=== PATIENT | female | born 1985 | race American Indian/Alaskan Native ===

== ENCOUNTER 2018-02-14 15:29 | Outpatient (CLI) | payer OTHER ==
[2018-02-14] MEDS ORDERED: LACTATED RINGERS 500 ML IV ONE (15:59)
[2018-02-14 16:55] VITALS: BP 108/64
== END 2018-02-14 17:00 | disposition home or self-care (01) ==
LOC: TRG 15:29
PROVIDERS: ATTEND Obstetrics & Gynecology
DX: O47.02 False labor before 37 completed weeks of gestation, second trimester (principal); Z3A.21 21 weeks gestation of pregnancy
CPT/HCPCS: 59025

== ENCOUNTER 2018-06-11 11:10 | Outpatient (CLI) | payer BC, OTHER ==
[2018-06-11 11:39] VITALS: BP 122/66
--- NOTE | 2018-06-11 17:51 | Ultrasound Report ---
FINAL REPORT EXAM: US OB BPP WO NON-STRESS HISTORY: well being TECHNIQUE: Ultrasound examination of the gravid uterus for biophysical profile evaluation of the fet us PRIORS: Limited OB ultrasound the same day FINDINGS: There is a single viable intrauterine with documented cardiac activity. The amniotic fluid volume is normal. heart rate: 146 bpm Amniotic fluid maximum vertical pocket: 6.1 cm Placental position: Anterior Evaluation for biophysical profile yields the following score as reported by technologist from [facility] exam: respiratory motion (minimum one episode): 2 Gross body movement (minimum 3 movements): 2 tone (minimum one flexion and extension): 2 Amniotic fluid volume (at least 2 cm pocket in vertical diameter): 2 IMPRESSION: Single viable intrauterine with 8/8 biophysical profile score during the sonographic evalua tion
--- NOTE | 2018-06-11 17:54 | Ultrasound Report ---
FINAL REPORT EXAM: US OB LIMITED HISTORY: well being TECHNIQUE: Limited ultrasound evaluation of the gravid uterus PRIORS: Biophysical profile the same day FINDINGS: There is a single viable intrauterine with documented cardiac activity. No anatomic a ssessment. Heart rate: 146 beats per minute position: Cephalic Placental position: Anterior Amniotic fluid index: 13.0cm IMPRESSION: Single viable intrauterine with the above parameters
== END 2018-06-11 13:30 | disposition home or self-care (01) ==
LOC: TRG 11:10
PROVIDERS: ATTEND Obstetrics & Gynecology
DX: O47.1 False labor at or after 37 completed weeks of gestation (principal); Z3A.38 38 weeks gestation of pregnancy
CPT/HCPCS: 59025; 76815; 76819

== ENCOUNTER 2018-06-18 19:05 | Outpatient (CLI) | payer OTHER ==
--- NOTE | 2018-06-18 19:56 | Event Note ---
Date: 06/18/18 complains of ROM ~1hour ago, no contractions, +FM. FHT's cat 1. SSE negative pool, equivocal nitrazine. Will proceed with US for MAYELIN and presentation
[2018-06-18 20:10] VITALS: BP 128/79
--- NOTE | 2018-06-19 01:27 | Ultrasound Report ---
FINAL REPORT EXAM: US OB LIMITED HISTORY: Evaluate for amniotic fluid and presentation. TECHNIQUE: Transabdominal limited sonographic evaluation was performed of the female pelvis with and without color Doppler imaging. PRIORS: Prior ultrasound dated 06/11/2017. FINDINGS: Single, intrauterine in cephalic presentation. Measurements: heart rate: 133 beats per minute. Amniotic fluid index: 11.0 cm. Estimated LMP-09/23/2017, EDC 06/30/2018. IMPRESSION: Amniotic fluid volume within normal limits. Viable intrauterine in cephalic presentation.
== END 2018-06-18 21:00 | disposition home or self-care (01) ==
LOC: TRG 19:05
PROVIDERS: ATTEND Obstetrics & Gynecology
DX: O47.1 False labor at or after 37 completed weeks of gestation (principal); Z3A.39 39 weeks gestation of pregnancy
CPT/HCPCS: 76815

== ENCOUNTER 2018-06-20 05:45 | Inpatient (IN) | payer BC, OTHER ==
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
[2018-06-20 09:54] LABS: Hematocrit 34.7 % (30.3-42.9); Hemoglobin 11.8 gm/dl (10.1-14.3); Mean Corpuscular HGB Conc 34 % (30-34); Mean Corpuscular Volume 92 fl (79-97); Platelet Count 255 K/mm3 (140-440); Red Cell Distribution Width 15.1 % (13.2-15.2)
[2018-06-20] MEDS: LACTATED RINGERS 1,000 ML IV SCH ×2 (10:00→17:52)
[2018-06-20] MEDS ORDERED: SUBLIMAZE IV PRN (10:30)
[2018-06-20] MEDS ORDERED: ZOFRAN IV PRN ×2 (10:30→22:37)
[2018-06-20] MEDS ORDERED: STADOL IV PRN (10:30)
[2018-06-20] MEDS ORDERED: AMPICILLIN/NS 2 GM/100 ML 2 GM/100 ML BAG IV ONE (10:30)
[2018-06-20] MEDS ORDERED: XYLOCAINE 2% INFILTRATI NR (10:30)
[2018-06-20] MEDS ORDERED: BRETHINE SUB-Q PRN (11:00)
[2018-06-20] MEDS ORDERED: MINERAL OIL PO PRN (11:00)
[2018-06-20] MEDS ORDERED: PITOCin/NS 30 UNIT/500ML 30 UNITS/500 ML BAG IV SCH (11:00)
[2018-06-20] MEDS ORDERED: BRETHINE IVP PRN (11:00)
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
[2018-06-20] MEDS ORDERED: NARCAN 2 MG/2 ML IV PRN (15:24)
--- NOTE | 2018-06-20 15:24 | Anesthesia Day of Surgery ---
Anesthesia Day of Surgery - Day of Surgery Patient Examined: Yes Patient H&P Reviewed: Yes Patient is NPO: Yes Beta Blockers: No Cardiac Clearance: No Pulmonary Clearance: No Asa's Test: N/A
--- NOTE | 2018-06-20 15:27 | Anesthesia Consultation ---
Anesthesia Consult and Med Hx - Airway Anesthetic Teeth Evaluation: Good ROM Head & Neck: Adequate Mental/Hyoid Distance: Adequate Mallampati Class: Class II Intubation Access Assessment: Probably Good - Pulmonary Exam CTA: Yes - Cardiac Exam Cardiac Exam: RRR - Pre-Operative Health Status ASA Pre-Surgery Classification: ASA2 Proposed Anesthetic Plan: Epidural - Pulmonary Hx Smoking: No Hx Asthma: No Hx Respiratory Symptoms: No SOB: No COPD: No Home Oxygen Therapy: No Hx Pneumonia: No Hx Sleep Apnea: No - Cardiovascular System Hx Hypertension: No Hx Coronary Artery Disease: No Hx Heart Attack/AMI: No Hx Angina: No Hx Percutaneous Transluminal Coronary Angioplasty (PTCA): No Hx Cardia Arrhythmia: No Hx Pacemaker: No Hx Internal Defibrillator: No Hx Valvular Heart Disease: No Hx Heart Murmur: No Hx Peripheral Vascular Disease: No - Central Nervous System Hx Neuromuscular Disorder: No Hx Seizures: No CVA: No Hx Back Pain: No Hx Psychiatric Problems: No - Gastrointestinal Hx Ulcer: No Hx Gastroesophageal Reflux Disease: No - Endocrine Hx Renal Disease: No Hx End Stage Renal Disease: No Hx Cirrhosis: No Hx Liver Disease: No Hx Insulin Dependent Diabetes: No Hx Non-Insulin Dependent Diabetes: No Hx Hypothyroidism: No Hx Hyperthyroidism: No - Hematic Hx Anemia: No Hx Sickle Cell Disease: No - Other Systems Hx Alcohol Use: No Hx Substance Use: No Hx Cancer: No Hx Obesity: No
[2018-06-20] MEDS: AMPICILLIN/NS 1 GM/50 ML 1 GM/50 ML BAG IV SCH ×2 (15:33→19:31)
[2018-06-20] MEDS ORDERED: MARCAINE 0.25% INFILTRATI ONE ×2 (15:59→16:06)
[2018-06-20] MEDS ORDERED: fentaNYL-BUPIV 2 MCG/ML-0.125% 200 MCG/100 ML BAG EPIDURAL SCH (16:00)
[2018-06-20] MEDS ORDERED: DIPRIVAN 10 MG/ML IV ONE (18:46)
[2018-06-20] MEDS: PITOCin/NS 20 UNIT/1000ML DRIP 20 UNITS/1,000 ML BAG IV SCH ×2 (20:45→21:55)
--- NOTE | 2018-06-20 21:29 | Post Anesthesia Evaluation ---
- Post Anesthesia Evaluation Patient Participated: Yes Airway Patent: Yes Stable Respiratory Function: Yes Nausea/Vomiting: No Temp > 96.8F: Yes Pain Manageable: Yes Adequeate Hydration: Yes Anesthesia Complications: No Block Receding Appropriately: Yes Patient on Ventilator: No
--- NOTE | 2018-06-20 21:47 | Procedure Note ---
OB Delivery Note - Delivery Date of Delivery: 06/20/18 Surgeon: ROBYN SOTELO Estimated blood loss: 300cc - Vaginal Delivery presentation: vertex Delivery position: OA Intrapartum events: mult.variable deceleratio Delivery induction: none Delivery augmentation: pitocin Delivery monitor: external FHT, external uterine, internal FHT, internal uterine Route of delivery: Delivery placenta: spontaneous (intact) Delivery cord: nuchal cord (x1 loose, delivery over body) Episiotomy: none Delivery laceration: 1st degree (left labial made hemostatic with Lidocaine 2% w/o epi and 2-0 Vicryl figure of 8 stitch x1) Anesthesia: local, epidural - Infant A at 1 minute: 8 at 5 minutes: 9 Infant Gender: Male (7#4oz)
[2018-06-20] MEDS ORDERED: MILK OF MAGNESIA PO PRN (22:37)
[2018-06-20] MEDS ORDERED: TYLENOL PO PRN (22:37)
[2018-06-20] MEDS ORDERED: DULCOLAX PR PRN (22:37)
[2018-06-20] MEDS ORDERED: TUCKS PAD TP PRN (22:37)
[2018-06-20] MEDS ORDERED: SODIUM CHLORIDE FLUSH SYRINGE 10 ML IV NR (22:37)
[2018-06-20] MEDS ORDERED: PHENERGAN PR PRN (22:37)
[2018-06-20] MEDS ORDERED: BENADRYL PO PRN (22:37)
[2018-06-20] MEDS ORDERED: PHENERGAN PO PRN (22:37)
[2018-06-20] MEDS ORDERED: LANSINOH TP PRN (22:37)
[2018-06-20] MEDS: IBUPROFEN PO SCH ×2 (23:09→23:11)
[2018-06-21] MEDS ORDERED: BOOSTRIX IM ONE (06:00)
[2018-06-21] MEDS: IBUPROFEN PO SCH ×3 (06:14→17:09)
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
[2018-06-21 10:45] LABS: Hematocrit 26.1 % (30.3-42.9); Hemoglobin 8.9 gm/dl (10.1-14.3)
[2018-06-21] MEDS ORDERED: AFLURIA QUAD 2018-2019 SYRINGE IM ONE (12:00)
[2018-06-22] MEDS: IBUPROFEN PO SCH ×3 (00:16→15:50)
--- NOTE | 2018-06-22 10:29 | Discharge Summary ---
Providers - Providers Date of Admission: 06/20/18 05:55 Date of discharge: 06/22/18 (desires d/c home) Attending physician: IBETH HUGGINS 06/20/18 22:37 Consult to Hospital Wellness Coordinator [CONS] Routine Reason For Exam: assistance with , SNS Primary care physician: IBETH HUGGINS Hospitalization Reason for admission: Labor/SROM Condition: Good Pertinent studies: post delivery H&H 8.9/26.1, asymptomatic anemia from blood loss, acute Procedures: Hospital course: uncomplicated and course Disposition: DC-01 TO HOME OR SELFCARE - Discharge Diagnoses (1) Rh negative, maternal Status: Acute Qualifiers: Trimester: third trimester Qualified Code(s): O26.893 - Other specified related conditions, third trimester; Z67.91 - Unspecified blood type, Rh negative (2) BMI 45.0-49.9, adult Status: Acute (3) (normal spontaneous vaginal delivery) Status: Acute Core Measure Documentation - Palliative Care Palliative Care/ Comfort Measures: Not Applicable - Core Measures Any of the following diagnoses?: none Exam - Constitutional Vitals: Temp Pulse Resp BP Pulse Ox 98.3 F 83 18 95/58 98 06/22/18 07:25 06/22/18 07:25 06/22/18 07:25 06/22/18 07:25 06/22/18 07:25 General appearance: Present: no acute distress, well-nourished - EENT Eyes: Present: PERRL ENT: hearing intact, clear oral mucosa - Neck Neck: Present: supple, normal ROM - Respiratory Respiratory effort: normal Respiratory: bilateral: CTA - Cardiovascular Heart Sounds: Present: S1 & S2. Absent: rub, click - Extremities Extremities: pulses symmetrical, No edema Peripheral Pulses: within normal limits - Abdominal General gastrointestinal: Present: soft, non-tender, non-distended, normal bowel sounds Female genitourinary: Present: normal - Integumentary Integumentary: Present: clear, warm, dry - Musculoskeletal Musculoskeletal: gait normal, strength equal bilaterally - Psychiatric Psychiatric: appropriate mood/affect, intact judgment & insight - Neurologic Neurologic: CNII-XII intact, moves all extremities - Additional findings Additional findings: fundus firm, lochia scant Plan Activity: no restrictions Diet: regular Follow up with: IBETH HUGGINS MD [Primary Care Provider] - 7 Days (Congratulations! Please call [phone] to schedule your son's circumcision in 1 week and your visit in 6 weeks. bring EMLA cream to your son's appointment and await further teaching. Call for any questions or concerns. ) Forms: [facility] Discharge Summary Prescriptions: Ibuprofen [Motrin 800 MG tab] 800 mg PO Q8HR PRN #30 tablet PRN Reason: Pain Lidocain2.5%/Prilocai2.5% [Emla] 5 gm TP ONCE #1 tube Lidocain2.5%/Prilocai2.5% [Emla] 5 gm TP ONCE PRN #1 tube PRN Reason: Pain
[2018-06-22 17:40] VITALS: BP 110/60
[2018-06-22] MEDS ORDERED: DERMOPLAST TP PRN (17:58)
== END 2018-06-22 18:52 | disposition home or self-care (01) | DRG 775 ==
LOC: TRG 05:45 → LD 05:55 → TRG 09:09 → OB 22:44
PROVIDERS: ADMIT Obstetrics & Gynecology; ATTEND Obstetrics & Gynecology
PROC: 10E0XZZ Delivery of Products of Conception, External Approach (ICD-10-PCS; principal; 2018-06-20)
PROC: 0HQ9XZZ Repair Perineum Skin, External Approach (ICD-10-PCS; 2018-06-20)
PROC: 3E0234Z Introduction of Serum, Toxoid and Vaccine into Muscle, Percutaneous Approach (ICD-10-PCS; 2018-06-20)
PROC: 10H07YZ Insertion of Other Device into Products of Conception, Via Natural or Artificial Opening (ICD-10-PCS; 2018-06-20)
PROC: 30233S1 Transfusion of Nonautologous Globulin into Peripheral Vein, Percutaneous Approach (ICD-10-PCS; 2018-06-21)
DX: O76 Abnormality in fetal heart rate and rhythm complicating labor and delivery (principal); O69.81X0 Labor and delivery complicated by cord around neck, without compression, not applicable or unspecified; Z3A.38 38 weeks gestation of pregnancy; Z37.0 Single live birth; O26.893 Other specified pregnancy related conditions, third trimester; Z67.91 Unspecified blood type, Rh negative; Z23 Encounter for immunization; O99.824 Streptococcus B carrier state complicating childbirth; O70.0 First degree perineal laceration during delivery
CPT/HCPCS: 36415; 76815; 85014; 85018; 85027; 85461; 86592; 86762; 86850; 86900; 86901; 90686; G0378; J0290; J0595; J2590; J2704; J2790; J3010; J7120

== ENCOUNTER 2018-12-24 08:25 | Emergency (ER) | payer OTHER ==
[2018-12-24 08:36] VITALS: BP 118/85
[2018-12-24 08:58] LABS: Basophils % (Auto) 0.5 % (0.0-1.8); Eosinophils # (Auto) 0.1 K/mm3 (0.0-0.4); Eosinophils % (Auto) 2.1 % (0.0-4.3); Hematocrit 38.3 % (30.3-42.9); Hemoglobin 12.8 gm/dl (10.1-14.3); Lymphocytes # (Auto) 1.9 K/mm3 (1.2-5.4); Lymphocytes % (Auto) 36.8 % (13.4-35.0); Mean Corpuscular HGB Conc 33 % (30-34); Mean Corpuscular Volume 90 fl (79-97); Monocytes # (Auto) 0.3 K/mm3 (0.0-0.8); Platelet Count 320 K/mm3 (140-440); Red Blood Count 4.24 M/mm3 (3.65-5.03); Red Cell Distribution Width 15.1 % (13.2-15.2)
[2018-12-24] MEDS ORDERED: TORADOL IV ONE (09:01)
[2018-12-24] MEDS ORDERED: LACTATED RINGERS 1,000 ML IV ONE (09:01)
--- NOTE | 2018-12-24 09:05 | Emergency Department Report ---
ED N/V/D HPI - General Chief complaint: Abdominal Pain Stated complaint: VOMITING BLOOD/BACK PAIN Time Seen by Provider: 12/24/18 09:01 Source: patient Mode of arrival: Ambulatory Limitations: No Limitations - History of Present Illness Initial comments: intermittent abd pain, none now back "contractions" nausea/vomiting intermittent, worse overnight x 2 days reports single streak of bright red blood in last episode, prompting ED eval no blood thinners complaint: nausea, vomiting -: Gradual, days(s) (2) Description of Vomiting: blood-streaked Associated Abdominal Pain: Yes Location: diffuse Radiation: none Severity: Unable to Determine Pain Scale: 0 Quality: aching Consistency: intermittent Improves with: none Worsens with: none Associated Symptoms: denies other symptoms - Related Data Previous Rx's Medication Instructions Recorded Last Taken Type Lidocain2.5%/Prilocai2.5% [Emla] 5 gm TP ONCE #1 tube 06/20/18 Unknown Rx Ibuprofen [Motrin 800 MG tab] 800 mg PO Q8HR PRN #30 tablet 06/21/18 Unknown Rx Lidocain2.5%/Prilocai2.5% [Emla] 5 gm TP ONCE PRN #1 tube 06/21/18 Unknown Rx Cyclobenzaprine [Flexeril] 10 mg PO TID PRN #15 tablet 12/24/18 Unknown Rx Ondansetron [Zofran Odt] 4 mg PO Q8HR #12 tab.rapdis 12/24/18 Unknown Rx Pantoprazole [Protonix] 40 mg PO QDAY #30 tablet 12/24/18 Unknown Rx Sucralfate [Carafate] 1 gm PO Q6HR #560 ml 12/24/18 Unknown Rx Allergies Allergy/AdvReac Type Severity Reaction Status Date / Time No Known Allergies Allergy Verified 06/11/18 11:41 ED Review of Systems ROS: Stated complaint: VOMITING BLOOD/BACK PAIN Other details as noted in HPI Comment: All other systems reviewed and negative Gastrointestinal: as per HPI ED Past Medical Hx - Past Medical History Previous Medical History?: No Hx Hypertension: No Hx Heart Attack/AMI: No Hx Congestive Heart Failure: No Hx Diabetes: No Hx Deep Vein Thrombosis: No Hx Liver Disease: No Hx Renal Disease: No Hx Sickle Cell Disease: No Hx Seizures: No Hx Asthma: No Hx COPD: No Hx HIV: No - Surgical History Past Surgical History?: No Hx Pacemaker: No Hx Internal Defibrillator: No - Social History Smoking Status: Never Smoker Substance Use Type: Alcohol - Medications Home Medications: Home Medications Medication Instructions Recorded Confirmed Last Taken Type Lidocain2.5%/Prilocai2.5% [Emla] 5 gm TP ONCE #1 tube 06/20/18 Unknown Rx Ibuprofen [Motrin 800 MG tab] 800 mg PO Q8HR PRN #30 tablet 06/21/18 Unknown Rx Lidocain2.5%/Prilocai2.5% [Emla] 5 gm TP ONCE PRN #1 tube 06/21/18 Unknown Rx Cyclobenzaprine [Flexeril] 10 mg PO TID PRN #15 tablet 12/24/18 Unknown Rx Ondansetron [Zofran Odt] 4 mg PO Q8HR #12 tab.rapdis 12/24/18 Unknown Rx Pantoprazole [Protonix] 40 mg PO QDAY #30 tablet 12/24/18 Unknown Rx Sucralfate [Carafate] 1 gm PO Q6HR #560 ml 12/24/18 Unknown Rx ED Physical Exam - General Limitations: No Limitations General appearance: alert, in no apparent distress - Head Head exam: Present: atraumatic, normocephalic - Eye Eye exam: Present: normal appearance - ENT ENT exam: Present: mucous membranes moist - Neck Neck exam: Present: normal inspection - Respiratory Respiratory exam: Present: normal lung sounds bilaterally. Absent: respiratory distress - Cardiovascular Cardiovascular Exam: Present: regular rate, normal rhythm. Absent: systolic murmur, diastolic murmur, rubs, gallop - GI/Abdominal GI/Abdominal exam: Present: soft, normal bowel sounds. Absent: distended, tenderness, guarding, rebound - Extremities Exam Extremities exam: Present: normal inspection - Back Exam Back exam: Present: normal inspection. Absent: CVA tenderness (R), CVA tenderness (L) - Neurological Exam Neurological exam: Present: alert, oriented X3 - Psychiatric Psychiatric exam: Present: normal affect, normal mood - Skin Skin exam: Present: warm, dry, intact, normal color. Absent: rash ED Course Vital Signs 12/24/18 08:34 Temperature 97.9 F Pulse Rate 75 Respiratory 18 Rate Blood Pressure 118/85 O2 Sat by Pulse 99 Oximetry ED Medical Decision Making - Lab Data Result diagrams: 12/24/18 08:47 12/24/18 08:47 Lab Results 12/24/18 12/24/18 12/24/18 Range/Units 08:47 08:47 09:07 WBC 5.2 (4.5-11.0) K/mm3 RBC 4.24 (3.65-5.03) M/mm3 Hgb 12.8 (10.1-14.3) gm/dl Hct 38.3 (30.3-42.9) % MCV 90 (79-97) fl MCH 30 (28-32) pg MCHC 33 (30-34) % RDW 15.1 (13.2-15.2) % Plt Count 320 (140-440) K/mm3 Lymph % (Auto) 36.8 H (13.4-35.0) % [place] % (Auto) 6.0 (0.0-7.3) % Eos % (Auto) 2.1 (0.0-4.3) % Baso % (Auto) 0.5 (0.0-1.8) % Lymph # 1.9 (1.2-5.4) K/mm3 [place] # 0.3 (0.0-0.8) K/mm3 Eos # 0.1 (0.0-0.4) K/mm3 Baso # 0.0 (0.0-0.1) K/mm3 Seg Neutrophils % 54.6 (40.0-70.0) % Seg Neutrophils # 2.8 (1.8-7.7) K/mm3 Sodium 138 (137-145) mmol/L Potassium 4.4 (3.6-5.0) mmol/L Chloride 102.3 (98-107) mmol/L Carbon Dioxide 29 (22-30) mmol/L Anion Gap 11 mmol/L BUN 10 (7-17) mg/dL Creatinine 0.8 (0.7-1.2) mg/dL Estimated GFR > 60 ml/min BUN/Creatinine Ratio 13 % Glucose 85 (65-100) mg/dL Calcium 9.1 (8.4-10.2) mg/dL Total Bilirubin 0.50 (0.1-1.2) mg/dL AST 21 (5-40) units/L ALT 27 (7-56) units/L Alkaline Phosphatase 62 (35-129) units/L Total Protein 7.1 (6.3-8.2) g/dL Albumin 3.7 L (3.9-5) g/dL Albumin/Globulin Ratio 1.1 % Lipase 20 (13-60) units/L HCG, Qual (Negative) Urine Color (Yellow) Urine Turbidity (Clear) Urine pH (5.0-7.0) Ur Specific [place] (1.003-1.030) Urine Protein (Negative) mg/dL Urine Glucose (UA) (Negative) mg/dL Urine Ketones (Negative) mg/dL Urine Blood (Negative) Urine Nitrite (Negative) Urine Bilirubin (Negative) Urine Urobilinogen (<2.0) mg/dL Ur Leukocyte Esterase (Negative) Urine WBC (Auto) (0.0-6.0) /HPF Urine RBC (Auto) (0.0-6.0) /HPF U Epithel Cells (Auto) (0-13.0) /HPF 12/24/18 12/24/18 Range/Units 09:07 09:33 WBC (4.5-11.0) K/mm3 RBC (3.65-5.03) M/mm3 Hgb (10.1-14.3) gm/dl Hct (30.3-42.9) % MCV (79-97) fl MCH (28-32) pg MCHC (30-34) % RDW (13.2-15.2) % Plt Count (140-440) K/mm3 Lymph % (Auto) (13.4-35.0) % [place] % (Auto) (0.0-7.3) % Eos % (Auto) (0.0-4.3) % Baso % (Auto) (0.0-1.8) % Lymph # (1.2-5.4) K/mm3 [place] # (0.0-0.8) K/mm3 Eos # (0.0-0.4) K/mm3 Baso # (0.0-0.1) K/mm3 Seg Neutrophils % (40.0-70.0) % Seg Neutrophils # (1.8-7.7) K/mm3 Sodium (137-145) mmol/L Potassium (3.6-5.0) mmol/L Chloride (98-107) mmol/L Carbon Dioxide (22-30) mmol/L Anion Gap mmol/L BUN (7-17) mg/dL Creatinine (0.7-1.2) mg/dL Estimated GFR ml/min BUN/Creatinine Ratio % Glucose (65-100) mg/dL Calcium (8.4-10.2) mg/dL Total Bilirubin (0.1-1.2) mg/dL AST (5-40) units/L ALT (7-56) units/L Alkaline Phosphatase (35-129) units/L Total Protein (6.3-8.2) g/dL Albumin (3.9-5) g/dL Albumin/Globulin Ratio % Lipase (13-60) units/L HCG, Qual Negative (Negative) Urine Color Yellow (Yellow) Urine Turbidity Clear (Clear) Urine pH 6.0 (5.0-7.0) Ur Specific [place] 1.018 (1.003-1.030) Urine Protein <15 mg/dl (Negative) mg/dL Urine Glucose (UA) Neg (Negative) mg/dL Urine Ketones Neg (Negative) mg/dL Urine Blood Neg (Negative) Urine Nitrite Neg (Negative) Urine Bilirubin Neg (Negative) Urine Urobilinogen < 2.0 (<2.0) mg/dL Ur Leukocyte Esterase Neg (Negative) Urine WBC (Auto) < 1.0 (0.0-6.0) /HPF Urine RBC (Auto) 3.0 (0.0-6.0) /HPF U Epithel Cells (Auto) 2.0 (0-13.0) /HPF - Medical Decision Making intermittent abd pain/back 'contractions' x 2 days intermittent n/v, single episode of blood exam is normal likely gastritis,labs pending given IVF, zofran, ketorolac IV for back pain labs normal, UA clear, neg hcg feeling improved I do not feel imaging is necessary at present recommend GI follow up, return to ED if worse - Differential Diagnosis back strain, gastritis, stone, uti Critical care attestation.: If time is entered above; I have spent that time in minutes in the direct care of this critically ill patient, excluding procedure time. ED Disposition Clinical Impression: Vomiting Qualifiers: Vomiting type: unspecified Vomiting Intractability: non-intractable Nausea pre sence: with nausea Qualified Code(s): R11.2 - Nausea with vomiting, unspecified Back pain Qualifiers: Back pain location: low back pain Chronicity: acute Back pain laterality: unspecified Sciatica presence: without sciatica Qualified Code(s): M54.5 - Low back pain Disposition: TO HOME OR SELFCARE Is pt being admited?: No Condition: Stable Instructions: Abdominal Pain (ED), Low Back Strain (ED) Prescriptions: Sucralfate [Carafate] 1 gm PO Q6HR #560 ml Cyclobenzaprine [Flexeril] 10 mg PO TID PRN #15 tablet PRN Reason: Muscle Spasm Pantoprazole [Protonix] 40 mg PO QDAY #30 tablet Ondansetron [Zofran Odt] 4 mg PO Q8HR #12 tab.rapdis Referrals: PRIMARY CAREMD [Primary Care Provider] - 3-5 Days CHRISTAL ARDON MD [Staff Physician] - 3-5 Days Time of Disposition: 11:16
[2018-12-24 09:15] LABS: BUN/Creatinine Ratio 13; Blood Urea Nitrogen 10 mg/dL (7-17); Calcium 9.1 mg/dL (8.4-10.2)
[2018-12-24 09:16] LABS: Alanine Aminotransferase 27 units/L (7-56); Albumin 3.7 g/dL (3.9-5); Hemolysis Index 0
[2018-12-24 09:55] LABS: Bilirubin,Urine NEG (Negative); Blood,Urine NEG (Negative); Color,Urine Yellow (Yellow); Protein,Urine <15 mg/dL mg/dL (Negative); Urobilinogen,Urine < 2.0 mg/dL (<2.0); WBC,Urine < 1.0 /HPF (0.0-6.0)
[2018-12-24] MEDS ORDERED: ZOFRAN ONE (10:23)
[2018-12-24] MEDS ORDERED: NACL 0.9% 1000 ML 0 ML ONE (10:23)
[2018-12-24] MEDS ORDERED: MORPHINE ONE (10:23)
[2018-12-24] MEDS ORDERED: BOOSTRIX IM ONE (10:24)
== END 2018-12-24 11:28 | disposition home or self-care (01) ==
LOC: ED 08:25
DX: R11.2 Nausea with vomiting, unspecified (principal); M54.5 Low back pain; Z79.899 Other long term (current) drug therapy
CPT/HCPCS: 36415; 80053; 81001; 83690; 84703; 85025; 96361; 96374; 99283; J1885; J7120; 90715; J2270; J2405; J7030